=== PATIENT | female | born 1965 | race Caucasian/White ===

== ENCOUNTER 2022-12-10 08:38 | Day surgery (SDC) | payer BC, SELFPAY ==
[2022-12-10] VITALS (44 sets, daily range): BP systolic 98–130; BP diastolic 61–88; PULSE 72–98; RESP 10–18; TEMP 36.4–37.3; O2SAT 92–100; BMI 32.0
--- NOTE | 2022-12-10 08:52 | ED_ITS ---
HPI - Abdominal Pain General Time Seen by Provider: 08:52 Date Seen: 12/10/22 Chief Complaint: Abdominal Pain Stated Complaint: Severe stomach pain Time Seen by Provider: 12/10/22 08:52 Source: patient and RN notes reviewed Mode of arrival: ambulatory Limitations: no limitations History of Present Illness HPI narrative: Patient is a 57-year-old female coming into the ER with severe right upper quadrant to mid upper abdominal pain starting at about 530 this morning. It is her Monday off in a long time and she actually got up early to start some painting. She had not eaten or drank anything this morning. She started to have severe epigastric pain, has had 3 episodes of vomiting. No fever, no diarrhea. She has had a remote hysterectomy and tummy tuck before. MD elicited complaint: abdominal pain Radiation: RUQ and epigastric Related Data Hx Last Menstrual Period: Status post hysterectomy Patient : No Home Medications Medication Instructions Recorded Confirmed pramipexole 1 mg tablet 1 - 2 mg PO HS 12/10/22 12/10/22 venlafaxine 150 mg 150 mg PO DAILY 12/10/22 12/10/22 capsule,extended release 24 hr Allergies Allergy/AdvReac Type Severity Reaction Status Date / Time No Known Drug Allergies Allergy Verified 12/10/22 08:47 Review of Systems Status of ROS Reports: 10 or more systems reviewed and unremarkable except as noted in History and below [facility] Surgical History (Updated 12/10/22 @ 09:03 by Martha Leal MD) Status post abdominoplasty ?Z98.890 - Other specified postprocedural states (ICD-10) Status post hysterectomy ?Z90.710 - Acquired absence of both cervix and uterus (ICD-10) Social History Smoking Status: Former smoker How often do you have a drink containing alcohol: 2-3 times a week How many standard drinks containing alcohol do you have on a typical day: 1 or 2 How often do you have six or more drinks on one occasion: Never AUDIT-C Alcohol total score: 3 Non-prescribed substance use: denies use Exam Const: Vital Signs, click to edit/add: Vital Signs - 24 hr 12/10/22 08:45 12/10/22 08:55 12/10/22 09:31 Temperature 97.7 F Pulse Rate 81 Pulse Rate [Pulse Oximeter] 92 Respiratory Rate 16 Blood Pressure Blood Pressure [Ri ght Upper Arm] 129/84 Pulse Oximetry 98 96 94 Oxygen Delivery Me thod Room Air 12/10/22 09:32 12/10/22 09:33 12/10/22 09:45 Temperature Pulse Rate 85 82 85 Pulse Rate [Pulse Oximeter] Respiratory Rate Blood Pressure 113/72 Blood Pressure [Ri ght Upper Arm] Pulse Oximetry 95 96 96 Oxygen Delivery Me thod 12/10/22 10:00 12/10/22 10:01 12/10/22 10:15 Temperature Pulse Rate 89 84 76 Pulse Rate [Pulse Oximeter] Respiratory Rate Blood Pressure 125/78 Blood Pressure [Ri ght Upper Arm] Pulse Oximetry 98 97 98 Oxygen Delivery Me thod 12/10/22 10:30 12/10/22 10:31 12/10/22 10:45 Temperature Pulse Rate 81 77 77 Pulse Rate [Pulse Oximeter] Respiratory Rate Blood Pressure 120/75 Blood Pressure [Ri ght Upper Arm] Pulse Oximetry 97 98 95 Oxygen Delivery Me thod 12/10/22 11:00 12/10/22 11:01 12/10/22 11:02 Temperature Pulse Rate 95 83 81 Pulse Rate [Pulse Oximeter] Respiratory Rate Blood Pressure 130/83 Blood Pressure [Ri ght Upper Arm] Pulse Oximetry 96 98 98 Oxygen Delivery Me thod 12/10/22 11:15 12/10/22 11:30 12/10/22 11:45 Temperature Pulse Rate 76 89 88 Pulse Rate [Pulse Oximeter] Respiratory Rate Blood Pressure Blood Pressure [Ri ght Upper Arm] Pulse Oximetry 98 96 95 Oxygen Delivery Me thod 12/10/22 12:00 12/10/22 12:02 12/10/22 12:03 Temperature Pulse Rate 83 79 82 Pulse Rate [Pulse Oximeter] Respiratory Rate Blood Pressure 126/82 Blood Pressure [Ri ght Upper Arm] Pulse Oximetry 94 93 95 Oxygen Delivery Me thod 12/10/22 12:15 12/10/22 12:30 Temperature Pulse Rate 73 83 Pulse Rate [Pulse Oximeter] Respiratory Rate Blood Pressure Blood Pressure [Ri ght Upper Arm] Pulse Oximetry 94 96 Oxygen Delivery Me thod Was able to watch patient ambulate back to her ER room, was carrying an emesis bag but gait is normal. Documenting provider has reviewed patient's vital signs: yes Common normals: oriented x3, no limitations and alert General appearance: cooperative, well kempt, well developed and ill appearing Nutritional appea hira: overweight Other: Patient has times where she seems uncomfortable and in pain. This will release and seems a bit more comfortable when the pain stops intensifying. HENMT: Common normals: normocephalic, head/scalp atraumatic and hearing grossly normal bilaterally Head and scalp: normocephalic and atraumatic Eye: Common normals: PERRL, EOMs intact bilaterally, conjunctivae normal and no scleral icterus Conjunctiva: conjunctiva(e) normal Pupil: PERRL Neck & C-Spine: Common normals: full ROM, no lymphadenopathy and supple Resp: Common normals: normal respiratory effort, no retractions, no use of accessory muscles and clear to auscultation bilaterally Auscultation: clear to auscultation bilaterally Cardio: Common normals: regular rate, regular rhythm, S1 normal heart sound, S2 normal heart sound, no gallops, no clicks and no murmurs Rate: regular rate Rhythm: regular rhythm Heart sounds: S1 normal and S2 normal GI: Common normals: Normal to inspection, nondistended, normoactive bowel sounds present, soft to palpation, no hepatosplenomegaly and no masses Palpation: soft and no hepatosplenomegaly Other: Is definitely tender right upper quadrant to epigastric area. No true guarding or rebound noted at this time but patient is definitely painful on palpation. Neuro: Common normals: oriented x3 Sensorium/orientation: alert Psych: Appearance: well kempt Course Course Hospital Course: Reviewed with patient that her pain is in the distribution of right upper quadrant and epigastric area. Certainly gallbladder pathology is a consideration here. We did review that sometimes gallstones can roll through and actually cause pancreatitis as well. We need to consider surgical intra- abdominal pathology, infectious etiology such as acute cholecystitis. Patient has had prior abdominal surgery but presentation really does not fit with bowel obstruction but still will be considered. We are going to start with a right upper quadrant ultrasound and appropriate labs, she understands we may need to proceed with CT of abdomen pelvis as well. We will initiate IV fluids, IV Zofran and morphine for symptom management. She will be on pulse oximetry as she is getting morphine. Consultations Consultation #1: Have reviewed with the surgeon Dr. Haas that we have probable acute cholecystitis with this patient. Her plan is likely to go to the OR after her current case. Have reviewed this with the patient. Right now she is stable, needs no pain or nausea management. Time: 10:59 Vital Signs Vital signs: Initial Vital Signs Temperature 97.7 F 12/10/22 08:45 Temperature Source Temporal Artery Scan 12/10/22 08:45 Pulse Rate 92 12/10/22 08:45 Respiratory Rate 16 12/10/22 08:45 Blood Pressure 129/84 12/10/22 08:45 Blood Pressure Mean 99 12/10/22 08:45 Blood Pressure Position Sitting 12/10/22 08:45 Pulse Oximetry 98 12/10/22 08:45 Oxygen Delivery Method Room Air 12/10/22 08:45 Vital Signs Temperature 97.7 F 12/10/22 08:45 Pulse Rate 92 12/10/22 08:45 Respiratory Rate 16 12/10/22 08:45 Blood Pressure 129/84 12/10/22 08:45 Pulse Oximetry 98 12/10/22 08:45 Oxygen Delivery Method Room Air 12/10/22 08:45 Temperature 97.7 F 12/10/22 08:45 Pulse Rate 83 12/10/22 12:30 Respiratory Rate 16 12/10/22 08:45 Blood Pressure 126/82 12/10/22 12:02 Pulse Oximetry 96 12/10/22 12:30 Oxygen Delivery Method Room Air 12/10/22 08:45 MDM - Abdominal Pain Lab Data Attestation: I reviewed the patient's lab results. Labs: Lab Results 12/10/22 Range/Units 09:05 WBC 8.92 (4.50-11.00) K/uL RBC 4.71 (4.00-5.20) m/uL Hgb 13.6 (12.0-16.0) gm/dL Hct 41.3 (33.0-51.0) % MCV 88 (80-100) fL MCH 29 (26-34) pg MCHC 33 (32-36) gm/dL RDW Coeff of Maicol 13.6 (11.5-15.5) % Plt Count 267 (140-440) K/uL Neut % (Auto) 73.7 H (42.0-72.0) % Lymph % (Auto) 16.9 L (20-44) % [place] % (Auto) 7.6 (0.0-11.0) % Eos % (Auto) 1.6 (0.0-7.0) % Baso % (Auto) 0.0 (0.0-3.0) % Neut # (Auto) 6.60 (1.7-7.0) K/uL Lymph # (Auto) 1.50 (0.90-2.90) K/uL [place] # (Auto) 0.70 (0.00-0.90) K/UL Eos # (Auto) 0.14 (0.00-0.50) K/uL Baso # (Auto) 0.00 (0.00-0.30) K/uL Sodium 138 (135-149) mmol/L Potassium 4.4 (3.6-5.1) mmol/L Chloride 107 (96-114) mmol/L Carbon Dioxide 22 (20-32) mmol/L BUN 25 (7-30) mg/dL Creatinine 0.6 (0.5-1.5) mg/dL Estimated Creat Clear 90.84 Estimated GFR 103 ml/min Glucose 113 (60-115) mg/dL Lactate 1.5 (0.5-1.9) mmol/L Calcium 9.2 (8.4-10.6) mg/dL Total Bilirubin 1.1 (0.1-1.5) mg/dL Direct Bilirubin 0.7 H (0.0-0.5) mg/dL AST 302 H (12-35) U/L ALT 139 H (4-35) U/L Alkaline Phosphatase 96 (40-150) U/L C-Reactive Protein 0.6 (0.5-1.0) mg/dL Total Protein 6.7 (6.0-8.3) g/dL Albumin 4.4 (3.3-5.0) g/dL Lipase 173 (23-300) U/L SARS-CoV-2 (PCR) Negative SARS-CoV-2 (Negative) Imaging Data US - abdomen: Attestation: I have reviewed the pertinent imaging results. Radiologist's impression: Patient: HASMUKH HAN Facility:?[facility] Patient ID:?[id number] :?1965 Study:?US Abdomen RUQ-12/10/2022 10:26:46 AM Ordering Physician:Aidee Thomas Final Report: INDICATION: Right upper quadrant pain. COMPARISON: None. TECHNIQUE: Grayscale and color Doppler images of the right upper quadrant. FINDINGS: The partially visualized pancreas, aorta and IVC are unremarkable. Normal liver echogenicity. There is no focal hepatic lesion. The common bile duct measures 5 mm. The gallbladder wall is thickened measuring approximately 5 mm. There is no pericholecystic inflammation. There is cholelithiasis. The right kidney measures 10.8 cm and appears normal. IMPRESSION: Cholelithiasis with gallbladder wall thickening. No definite pericholecystic fluid. Findings are indeterminate for cholecystitis. Recommend HIDA if there is persistent concern for acute cholecystitis. Dictated by Missing Worksheet*MD @ 12/10/2022 11:19:31 AM (Electronic Signature) Critical Care Time Critical Care Time Critical Care Time: No Discharge Plan Discharge Clinical Impression: Acute cholecystitis, Cholelithiasis Patient Disposition: Admitted As Inpatient Condition: Unchanged
--- NOTE | 2022-12-10 08:55 | CRLHL7_ITS ---
For Patients: As a result of the Century Cures Act, medical imaging exams and procedure reports are released immediately into your electronic medical record. You may view this report before your referring provider. If you have questions, please contact your health care provider. INDICATION: Right upper quadrant pain. COMPARISON: None. TECHNIQUE: Grayscale and color Doppler images of the right upper quadrant. FINDINGS: The partially visualized pancreas, aorta and IVC are unremarkable. Normal liver echogenicity. There is no focal hepatic lesion. The common bile duct measures 5 mm. The gallbladder wall is thickened measuring approximately 5 mm. There is no pericholecystic inflammation. There is cholelithiasis. The right kidney measures 10.8 cm and appears normal. IMPRESSION: Cholelithiasis with gallbladder wall thickening. No definite pericholecystic fluid. Findings are indeterminate for cholecystitis. Recommend HIDA if there is persistent concern for acute cholecystitis. Dictated by Missing WorksheetMD Fara @ 12/10/2022 11:19:31 AM (Electronically Signed)
[2022-12-10] MEDS: MORPHINE 4 MG/ML INJ IVP (09:06)
[2022-12-10] MEDS: ONDANSETRON 2 MG/ML inj 4 MG IVP ×2 (09:06→15:57)
[2022-12-10] MEDS: 0.9 % SODIUM CHLORIDE 1000 ml 1,000 ML 500 ML IV (09:06)
[2022-12-10 09:21] LABS: Lactate* 1.5 mmol/L (0.5-1.9)
[2022-12-10 09:28] LABS: Eosinophils Absolute Auto 0.14 K/uL (0.00-0.50); Eosinophils Percent Auto 1.6 % (0.0-7.0); Hematocrit 41.3 % (33.0-51.0); Hemoglobin* 13.6 gm/dL (12.0-16.0); Immature Granulocytes Abs Auto 0.02 K/uL (0.00-0.30); Immature Granulocytes Pct Auto 0.2 %; Lymphocytes Percent Auto 16.9 % (20-44); Mean Corpuscular HGB Conc 33 gm/dL (32-36); Mean Corpuscular Hemoglobin 29 pg (26-34); Mean Corpuscular Volume 88 fL (80-100); Monocytes Percent Auto 7.6 % (0.0-11.0); Neutrophils Percent Auto 73.7 % (42.0-72.0); Platelet Count* 267 K/uL (140-440); RDW Coefficient of Variation % 13.6 % (11.5-15.5); Red Blood Count 4.71 m/uL (4.00-5.20); Slide Review Reflex No; White Blood Count* 8.92 K/uL (4.50-11.00)
[2022-12-10 09:36] LABS: Albumin* 4.4 g/dL (3.3-5.0); Chloride* 107 mmol/L (96-114); Sodium* 138 mmol/L (135-149)
[2022-12-10 09:37] LABS: Potassium* 4.4 mmol/L (3.6-5.1)
[2022-12-10 09:39] LABS: Alanine Aminotransferase* 139 U/L (4-35); Alkaline Phosphatase* 96 U/L (40-150); Aspartate Amino Transferase* 302 U/L (12-35); Bilirubin Direct* 0.7 mg/dL (0.0-0.5); Bilirubin Total* 1.1 mg/dL (0.1-1.5); Blood Urea Nitrogen* 25 mg/dL (7-30); Carbon Dioxide* 22 mmol/L (20-32); Creatinine* 0.6 mg/dL (0.5-1.5); Est. Creatinine Clearance* 90.84; Estimated Glomerular Filt Rate 103 ml/min; Total Protein* 6.7 g/dL (6.0-8.3)
[2022-12-10 09:40] LABS: Calcium* 9.2 mg/dL (8.4-10.6); Glucose* 113 mg/dL (60-115); Lipase* 173 U/L (23-300)
[2022-12-10 09:42] LABS: C Reactive Protein* 0.6 mg/dL (0.5-1.0)
[2022-12-10 11:12] LABS: SARS PCR* Negative SARS-CoV-2 (Negative)
--- NOTE | 2022-12-10 12:53 | P.GSHP_ITS ---
History of Present Illness History of Present Illness Date Seen: 12/10/22 Chief complaint: Severe stomach pain Narrative: Beverly Powers is a 57 year old female who developed severe upper abdominal pain abruptly this morning around 530. She states that last night she had and woke up at 4:00 a.m.. The pain began abruptly, mostly in her epigastric and right upper quadrant region, however it did radiate across her abdomen like a band. She has never had pain like this before. She does describe some history of alternating diarrhea and constipation. She had pizza last night for dinner but otherwise had not eaten anything this morning. She has had nausea and she vomited 3 times. She has not had any fevers. The pain is very severe in only morphine helps take the pain away. She has no chest pain or shortness of breath [facility] Medical History (Updated 12/10/22 @ 12:57 by Marcie Haas MD) Restless leg syndrome ?G25.81 - Restless legs syndrome (ICD-10) Surgical History (Updated 12/10/22 @ 12:54 by Marcie Haas MD) H/O reduction mammoplasty ?Z98.890 - Other specified postprocedural states (ICD-10) Status post abdominoplasty ?Z98.890 - Other specified postprocedural states (ICD-10) Status post hysterectomy ?Z90.710 - Acquired absence of both cervix and uterus (ICD-10) Social History (Updated 12/10/22 @ 12:55 by Marcie Haas MD) Narrative: She works as a receptionist scheduler for a veterinary clinic Smoking Status: Former smoker How often do you have a drink containing alcohol: 2-3 times a week How many standard drinks containing alcohol do you have on a typical day: 1 or 2 How often do you have six or more drinks on one occasion: Never AUDIT-C Alcohol total score: 3 Non-prescribed substance use: denies use Meds Home Medications and Allergies Home Medications Medication Instructions Recorded Confirmed Type pramipexole 1 mg tablet 1 - 2 mg PO HS 12/10/22 12/10/22 History venlafaxine 150 mg 150 mg PO DAILY 12/10/22 12/10/22 History capsule,extended release 24 hr Allergies Allergy/AdvReac Type Severity Reaction Status Date / Time No Known Drug Allergies Allergy Verified 12/10/22 08:47 Exam Narrative: Exam Narrative: General appearance: Alert, cooperative, and in no distress Eyes: PERRLA, eye lids clear, and sclera white HENT Head: Normocephalic Ears: External ears normal Pulmonary: Clear to auscultation bilaterally Cardiovascular Heart: Regular rate and rhythm Extremities: warm and well perfused Gastrointestinal Abdominal: Scars consistent with surgical history. No hernias. Tender in the right upper quadrant and epigastric region. Musculoskeletal: Extremities: Upper: Both upper extremities have normal joint range of motion and intact strength. Lower: Both lower extremities have normal joint range of motion and inta ct strength. Skin: Normal skin color, texture, and turgor. No rashes or lesions. Neurologic: No focal deficits Psychiatric: Alert, oriented, cooperative, normal affect. Const: Vital Signs, click to edit/add: Vital Signs - 24 hr 12/10/22 08:45 12/10/22 08:55 12/10/22 09:31 Temperature 97.7 F Pulse Rate 81 Pulse Rate [Pulse Oximeter] 92 Respiratory Rate 16 Blood Pressure Blood Pressure [Ri ght Upper Arm] 129/84 Pulse Oximetry 98 96 94 Oxygen Delivery Me thod Room Air 12/10/22 09:32 12/10/22 09:33 12/10/22 09:45 Temperature Pulse Rate 85 82 85 Pulse Rate [Pulse Oximeter] Respiratory Rate Blood Pressure 113/72 Blood Pressure [Ri ght Upper Arm] Pulse Oximetry 95 96 96 Oxygen Delivery Me thod 12/10/22 10:00 12/10/22 10:01 12/10/22 10:15 Temperature Pulse Rate 89 84 76 Pulse Rate [Pulse Oximeter] Respiratory Rate Blood Pressure 125/78 Blood Pressure [Ri ght Upper Arm] Pulse Oximetry 98 97 98 Oxygen Delivery Me thod 12/10/22 10:30 12/10/22 10:31 12/10/22 10:45 Temperature Pulse Rate 81 77 77 Pulse Rate [Pulse Oximeter] Respiratory Rate Blood Pressure 120/75 Blood Pressure [Ri ght Upper Arm] Pulse Oximetry 97 98 95 Oxygen Delivery Me thod 12/10/22 11:00 12/10/22 11:01 12/10/22 11:02 Temperature Pulse Rate 95 83 81 Pulse Rate [Pulse Oximeter] Respiratory Rate Blood Pressure 130/83 Blood Pressure [Ri ght Upper Arm] Pulse Oximetry 96 98 98 Oxygen Delivery Me thod 12/10/22 11:15 12/10/22 11:30 12/10/22 11:45 Temperature Pulse Rate 76 89 88 Pulse Rate [Pulse Oximeter] Respiratory Rate Blood Pressure Blood Pressure [Ri ght Upper Arm] Pulse Oximetry 98 96 95 Oxygen Delivery Me thod 12/10/22 12:00 12/10/22 12:02 12/10/22 12:03 Temperature Pulse Rate 83 79 82 Pulse Rate [Pulse Oximeter] Respiratory Rate Blood Pressure 126/82 Blood Pressure [Ri ght Upper Arm] Pulse Oximetry 94 93 95 Oxygen Delivery Me thod 12/10/22 12:15 12/10/22 12:30 Temperature Pulse Rate 73 83 Pulse Rate [Pulse Oximeter] Respiratory Rate Blood Pressure Blood Pressure [Ri ght Upper Arm] Pulse Oximetry 94 96 Oxygen Delivery Me thod Results Results Labs: White blood cell count is normal though she does have 73% neutrophils BMP within normal limits. Total bilirubin is 1.1 with direct bilirubin of 0.7 AST is 302 ALT is 139 Alkaline phosphatase is 96 Lipase is 173 CRP is 0.6 COVID is negative Additional studies: Diagnostic Imaging Report Patient: Beverly Powers Attending Dr: Ordering Physician: Martha Leal M.D. Date of Service: 12/10/22 Procedure(s): US abdomen limited Accession Number(s): [id number] cc: Martha Leal M.D.; Stephanie Ibrahim PA~ For Patients:? As a result of the Cures Act, medical imaging exams and procedure reports are released immediately into your electronic medical record.? You may view this report before your referring provider.? If you have questions, please contact your health care provider. INDICATION: Right upper quadrant pain. COMPARISON: None. TECHNIQUE: Grayscale and color Doppler images of the right upper quadrant. FINDINGS: The partially visualized pancreas, aorta and IVC are unremarkable. Normal liver echogenicity. There is no focal hepatic lesion. The common bile duct measures 5 mm. The gallbladder wall is thickened measuring approximately 5 mm. There is no pericholecystic inflammation. There is cholelithiasis. The right kidney measures 10.8 cm and appears normal. IMPRESSION: Cholelithiasis with gallbladder wall thickening. No definite pericholecystic fluid. Findings are indeterminate for cholecystitis. Recommend HIDA if there is persistent concern for acute cholecystitis. Dictated by Missing Worksheet*MD @ 12/10/2022 11:19:31 AM Assessment and Plan Assessment and plan (1) Acute cholecystitis: Status: Acute (2) Cholelithiasis: Status: Acute (3) Choledocholithiasis: Status: Acute Plan The patient is a 57-year-old female who presents to the hospital with severe upper abdominal pain. She does have elevated bilirubin and AST ALT with thickening of the gallbladder wall and gallstones. This is consistent with acute cholecystitis and possible choledocholithiasis. I explained that the treatment for this is laparoscopic cholecystectomy. We discussed the procedure as well as risks and benefits of surgery which include bleeding, infection, bile leak, conversion to open or injury to other structures, specifically the common bile duct. We also discussed recovery. Because of the patient's elevated liver enzymes, I explained that there is concern for choledocholithiasis. We discussed an intraoperative cholangiogram. They understand that if unsuccessful, an ERCP may be necessary. She is agreeable with this plan we will plan on surgery as soon as the OR is available this afternoon.
--- NOTE | 2022-12-10 13:58 | CRLHL7_ITS ---
For Patients: As a result of the Century Cures Act, medical imaging exams and procedure reports are released immediately into your electronic medical record. You may view this report before your referring provider. If you have questions, please contact your health care provider. Indication: Cholecystitis Technique: Cholangiogram Comparison: No comparison Findings/impression : Opacification of the common bile duct and proximal intrahepatic ducts are unremarkable. No dilatation or suspicious filling defects. Please refer to the performing physician`s report for full details. Three images 20 seconds fluoro time. Dictated by Saranya Jett MD @ 12/12/2022 8:33:04 AM (Electronically Signed)
[2022-12-10] MEDS: LACTATED RINGERS 1000 ML 1,000 ML 100 ML IV (14:24)
[2022-12-10] MEDS: CEFAZOLIN 2 GM INJ IVP (14:35)
--- NOTE | 2022-12-10 14:59 | SUR.OPER ---
Time out completed with Sarkis Lopez for bilateral tap blocks at approximately [id number]
[2022-12-10] MEDS: BUPIVACAINE 0.25% 30 ML INJECTION (15:20)
[2022-12-10] MEDS: IOPAMIDOL 50 ML VIAL INJECTION (15:20)
[2022-12-10] MEDS: 0.9% SODIUM CHL 50 ML VIAL INJECTION (15:20)
[2022-12-10] MEDS: 0.9 % SODIUM CHL 20 ml vial INJECTION (15:20)
--- NOTE | 2022-12-10 15:36 | PM.GSPRC ---
Operative Note Date of procedure: 12/10/22 Pre-op diagnosis: 1. Acute cholecystitis 2. Concern for choledocholithiasis Post-op diagnosis: 1. Acute cholecystitis 2. Negative intraoperative cholangiogram Type of Procedure: 1. Laparoscopic cholecystectomy 2. Intraoperative cholangiogram Indications: The patient is a 57-year-old female who presented with severe epigastric abdominal pain. She was found to have mildly elevated bilirubin and a left shift of her neutrophils. She also had elevated AST and ALT. Ultrasound showed gallbladder wall thickening and gallstones. Cholecystectomy with intraoperative cholangiogram was recommended and the patient agreed to proceed after discussing the procedure as well as risks and benefits. Procedure Description: After discussing the risks and benefits of the procedure, the patient signed informed consent.? The operative site was marked and the patient was brought to the operating room and placed on the operating table in supine position.? Care was taken to pad the patient's pressure points.?? The patient was then intubated by anesthesia.?? The operative site was then prepped and draped in the usual sterile fashion.? A time-out was then performed. Entrance to the abdomen was gained via a 5 mm Visiport in the left upper quadrant. The abdomen was insufflated and briefly surveyed for signs of injury. There was none. A 10 mm umbilical port was placed as well as 2 working ports along the right costal margin, all under direct vision. The patient was then placed in reverse Trendelenburg position with the right side up. The gallbladder fundus was grasped and retracted cephalad. The infundibulum was grasped. A combination of hook cautery and blunt dissection was used to carefully dissect out the cystic duct and artery until they could clearly be seen entering the gallbladder without any intervening structures. The gallbladder was dissected off the cystic plate to achieve the critical view. There was a mild amount of edema during this dissection. Once this was achieved the cystic artery was clipped with 2 clips proximally and 1 clip distally and transected with the scissors. A clip was placed on the proximal cystic duct. A ductotomy was created and a cholangiocatheter was then advanced into the abdomen and placed into the cystic duct. A leak test was performed with saline which was negative. Fluoroscopy was then brought into the field and a cholangiogram was obtained. There was brisk filling of the left and right hepatic ducts, common bile duct as well as the duodenum. No filling defects were noted. The cholangiocatheter was then removed and the cystic duct clipped with 2 clips distally. A scissor was used then to transect the duct. The gallbladder was then taken off of the liver bed and removed from the abdomen using an Endo-Catch bag. The gallbladder bed was surveyed for hemostasis which appeared adequate. A small amount of bile which had spilled during the cholangiogram was suctioned from the abdomen. The remaining ports were then removed and the abdomen desufflated. The umbilical fascial site was closed with 0 Vicryl. The skin was closed with absorbable subcuticular suture. Sterile dressings were then applied. Instrument sponge and needle counts were correct at the end of the case. The patient was then woken and transferred to the PACU in stable condition. ? The patient tolerated the procedure well. Findings: Likely acute cholecystitis Negative intraoperative cholangiogram Anesthesia: NYA Surgeon: Marcie Haas MD Estimated blood loss (mL): 5 Specimen: Gallbladder Condition: stable Disposition: PACU
--- NOTE | 2022-12-10 15:42 | W.PM.NB ---
Nerve Block Nerve Block Time Seen by Provider: 14:30 Date Seen: 12/10/22 Type of block requested by surgeon for post-operative analgesia: TAP Side: bilateral Time out performed: Yes Verification of patient name: Yes Verification of date of : Yes Site marking: site marked Name of person performing procedure: Shailesh Lopez Continuous monitoring Was continuous monitoring of O2 sat, B/P, alarm security or surveillance monitor, recorded every 15 minutes?: Yes Procedure Checklist: sterile prep, needles and gloves Ultrasound guided. Images saved: Yes Medications given in 5ml increments after negative aspiration: Marcaine %: 0.25 mL: 30 Needle gauge: 20 and Exparel mL: 10 Needle gauge: 20 Patient tolerated procedure well: Yes Additional comments: Injected in 5ml increments after negative aspiration Block Charges Block Charge (with Pro Fee): TAP Bilateral Use of Ultrasound Machine for Block: Yes- US Guidance/pain block
--- NOTE | 2022-12-10 15:42 | W.ANESCHARGE ---
Anesthesia Charges Start Date/Time Anesthesia Start Date: 12/10/22 Anesthesia Start Time: 14:24 Stop Date/Time Anesthesia Stop Date: 12/10/22 Anesthesia Stop Time: 15:36 Summary Emergency: DATA ANALYST REPORT WRITER
[2022-12-10] MEDS: METOCLOPRAMIDE HCL 5 MG/ML INJ 10 MG IVP (16:05)
[2022-12-10] MEDS: KETOROLAC 15 MG/ML inj IVP (16:54)
[2022-12-10] MEDS: HYDROCODONE-ACETAMIN 5-325 MG 1 TAB PO (18:44)
--- NOTE | 2022-12-10 20:39 | PC.NURSE ---
Shift note: Pt was brought to the unit on bed at 1620 on 2L of oxygen through face mask and IV Lactated Ringers infusing. Pt was alert and conscious on arrival. Pt had 3 laps which were clean and dry. Ice pack applied, pain level was estimated at 1 on arrival. ROM present in both upper and lower extremities. Vital signs were stable. Lung sound clear, hypoactive bowel sound. At 1700, pt complained of pain of 4 and PRN med given. Pt was assisted in sitting up position at the side of bed and in standing position. Denied dizziness and n/v. Ambulated with A1 and was able to independently ambulated before leaving the facility. Pt and request for discharge at 1900. Discharge instruction and given and leave the facility at 1930.
== END 2022-12-10 19:52 | disposition home or self-care (01) ==
LOC: ED 09:41 → MEDSURG 12:44 → SS 12:51 → MEDSURG 12:56
PROVIDERS: Emergency Provider Family Medicine; PCP Physician Assistant; Visit Provider Surgery
PROC: 0FT44ZZ Resection of Gallbladder, Percutaneous Endoscopic Approach (ICD-10-PCS; CPT 47563; principal; 2022-12-10 14:30)
DX: K80.00 Calculus of gallbladder with acute cholecystitis without obstruction (principal)
CPT/HCPCS: 47563; 00790; 36415; 74300; 76000; 76705; 76942; 80053; 82248; 83605; 83690; 85025; 86140; 87635; 88304; 94761; 99140; 99284; 99285; A9270; C9290; J0330; J0690; J1100; J1885; J2250; J2270; J2405; J2704; J2765; J3010; J3490; J7030; J7120; Q9967